=== PATIENT | female | born 1945 | race Caucasian/White ===

== ENCOUNTER → 2023-11-20 13:20 | Outpatient (REF) | payer MEDICARE, BC, SELFPAY | LOC: DHCBC MAIN 13:20 | PROVIDERS: ATTENDING PHYSICIAN Nurse Practitioner; FAMILY PHYSICIAN Internal Medicine | DX: I48.19 Other persistent atrial fibrillation (principal); I49.3 Ventricular premature depolarization; I34.0 Nonrheumatic mitral (valve) insufficiency | CPT/HCPCS: 93306 ==

== ENCOUNTER 2024-04-10 02:02 | Inpatient (IN) | payer MEDICARE, BC, SELFPAY ==
[2024-04-09 21:59] VITALS: BP 146/84
[2024-04-09 22:02] VITALS: BMI 27.9
[2024-04-09 22:28] LABS: % Basophils 0.6 % (0-2); % Eosinophils 0.5 % (0-6); % Immature Granulocytes 0.4 % (0-0.5); % Lymphocytes 23.8 % (20.5-51.1); % Monocytes 11.5 % (1.7-9.3); % Neutrophils 63.2 % (42.2-75.2); Absolute Basophils 0.1 10^3/uL (0-0.2); Absolute Eosinophils 0.1 10^3/uL (0-0.7); Absolute Immature Granulocytes 0.1 10^3/uL (0-0.05); Absolute Monocytes 1.5 10^3/uL (0.1-0.6); Hematocrit 35.7 % (37.0-47.0); Hemoglobin 12.9 g/dL (12.0-16.0); Mean Corp Hgb Conc. 36.1 g/dL (33.0-37.0); Mean Corpuscular Hgb 34.2 pg (27.0-31.0); Mean Corpuscular Volume 94.7 fL (81.0-99.0); Mean Platelet Volume 9.4 fL (7.4-10.4); Nucleated Red Blood Cells % 0 %; Platelet Count 338 10^3/uL (130-400); Red Blood Cell Count 3.77 10^6/uL (4.20-5.40); Red Cell Dist. Width 12.9 % (11.5-14.5); White Blood Cell Count 12.7 10^3/uL (4.8-10.8)
[2024-04-09 22:45] LABS: ALT (SGPT) 11 U/L (0-35); AST (SGOT) 27 U/L (14-36); Albumin 4.1 g/dl (3.5-5.0); Alkaline Phosphatase 109 U/L (38-126); Blood Urea Nitrogen 18 mg/dl (7-17); Calcium 9.9 mg/dl (8.4-10.2); Carbon Dioxide 28 mmol/L (22-30); Chloride 106 mmol/L (98-107); Estimated Creatinine Clearance 71 ml/min; Glucose 101 mg/dl (70-99); Potassium 3.8 mmol/L (3.5-5.1); Sodium 140 mmol/L (135-145); Total Bilirubin 1.8 mg/dl (0.2-1.3); Total Protein 7.2 g/dl (6.3-8.2); eGFR > 60.00
--- NOTE | 2024-04-09 22:47 | ED.GENMED ---
History of Present Illness
General
Chief Complaint: Fall
Source: patient
Exam Limitations: none
Time Seen by Provider: 04/09/24 22:33
Nursing documentation reviewed up to this point in time: agreed with
History of Present Illness
History of Present Illness:
This a pleasant 78-year-old female that presents with right hip pain. She was at home on her porch and she tripped over her cat. She hit the back of her head, creating acute contusion. She did not lose consciousness but was concerned because she
is on Eliquis. She takes Eliquis for atrial fibrillation. Patient called 911. Upon arrival she was in severe distress. She was given 100 mics of fentanyl which did not seem to touch her pain. Patient reports no other injury. Patient denies
fever, chills, nausea or vomiting. Denies chest pain or shortness of breath.
Past History
Past History
ED Past Medical History: None
ED Past Surgical History: Other (Splenectomy)
Social History
Tobacco: Non-smoker
Alcohol: None
Drug: None
Family History
Family History: Other (Nonsignificant)
Review of Systems
Review of Systems
Allergies reviewed?: Yes
All Other Systems: ROS reviewed and negative except as documented in HPI and ROS
Constitutional: Reports no symptoms
EENT: Reports no symptoms
Respiratory: Reports no symptoms
Cardiac: Reports no symptoms
ABD/GI: Reports no symptoms
: Reports no symptoms
Musculoskeletal: Reports joint pain, joint swelling and back pain
Skin: Reports no symptoms
Neurological: Reports no symptoms
Endocrine: Reports no symptoms
Hematologic/Lymphatic: Reports no symptoms
Psychiatric: Reports anxiety
Phy Exam
General Physical Exam
General Presentation: moderate distress
General age: appears stated age
General Skin: warm and dry
General Habitus: normal
General Mental: anxious
General Hydration: appears well hydrated
ENT Exam
ENT Exam: EOMI, pharynx normal, neck supple and normocephalic
Eye Exam
Eye Exam: PERRL, cornea clear and conjunctiva normal
Cardiovascular Exam
Cardiovascular Exam: irregularly irregular
Heart Sounds: normal
Pulmonary Exam
Pulmonary Exam: lungs clear, no respiratory distress, no rales, no crackles, no rhonchi, no stridor, no wheezing and no cough
Gastrointestinal Exam
Gastrointestinal Exam: normal bowel sounds, non tender, soft, no organomegaly, no pulsatile mass and non distended
Neurological Exam
Neurological Exam: alert, oriented x3, no motor deficits and speech normal
Musculoskeletal Exam
Musculoskeletal Exam: no edema, joint swelling and neuro vasc intact
Skin Exam
Skin Exam: normal color, warm/dry, no rash and no petechia
Psychiatric Exam
Psychiatric Exam: normal mood/affect
Course
Orders/Labs/Results
Orders:
Orders
04/09/24 22:09
CMP [Comprehensive Metabolic Panel] Urgent
Complete Blood Count/With Diff Urgent
04/09/24 22:35
Hip, Right 2-3 Views [CR Hip - RT w/wo Pel 2-3 Vw*] Urgent
Comment:
Reason For Exam: fall with right hip pain
Include a pelvis x-ray?: Yes
04/09/24 22:36
CT Head W/o Iv Contrast Urgent
Comment:
Reason For Exam: Fall on eliquis
Urinalysis Reflex To Culture Urgent
04/09/24 22:45
HYDROmorphone [Dilaudid] 1 mg IV NOW STA
04/09/24 22:53
Type+Screen Urgent
PTT Urgent
Prothrombin Time Urgent
04/09/24 23:46
Electrocardiogram (*1) Urgent
Reason for Study: QTc Monitoring
EKG- Treatment ONCE
04/09/24 23:47
CT Pelvis W/o Iv Contrast Urgent
Comment:
Reason For Exam: hip pain. Per ortho request
Abnormal Lab Results
04/09/24 04/09/24
22:09 22:53
WBC 12.7 H 10^3/uL
(4.8-10.8)
RBC 3.77 L 10^6/uL
(4.20-5.40)
Hct 35.7 L %
(37.0-47.0)
MCH 34.2 H pg
(27.0-31.0)
Abs Immat Gran (auto) 0.1 H 10^3/uL
(0-0.05)
Absolute Neuts (auto) 8.0 H 10^3/uL
(1.4-6.5)
Absolute Monos (auto) 1.5 H 10^3/uL
(0.1-0.6)
Monocytes % 11.5 H %
(1.7-9.3)
PT 15.8 H Sec
(11.4-14.6)
BUN 18 H mg/dl
(7-17)
Creatinine 0.5 L mg/dL
(0.6-1.0)
Glucose 101 H mg/dl
(70-99)
Total Bilirubin 1.8 H mg/dl
(0.2-1.3)
04/09/24 22:09
04/09/24 22:09
Vital Signs
Initial and Last Documented VS:
Initial Vital Signs
Temp Pulse Resp BP Pulse Ox
97.8 F 77 18 146/84 98
04/09/24 21:59 04/09/24 21:59 04/09/24 21:59 04/09/24 21:59 04/09/24 21:59
Last Documented Vital Signs
Temp Pulse Resp BP Pulse Ox
97.8 F 77 18 146/84 98
04/09/24 21:59 04/09/24 21:59 04/09/24 21:59 04/09/24 21:59 04/09/24 21:59
*Radiology
Radiology exam reviewed: preliminary read by ED provider (Right hip fracture)
*Pulse Oximetry
Patient hypoxic: no
*Critical Care Note
Total Time (30-74mins, 75-104mins- exclusive of procedures): Not Applicable
ED Attending Note
-
Portions of this chart may have been created with voice recognition software.� Occasional wrong word or��sound alike� substitutions may have occurred due to the inherent limitations of voice recognition software.
Discharge Plan
Departure
Patient Disposition: Admit
Date of Disposition: 04/09/24
Time of Disposition: 23:48
Admit to: Telemetry
Presentation/result/management discussed w/ accepting MD/DO: Hospitalist
Condition: Good
Discharge Problem:
Closed fracture of right hip
Referrals:
Trisha Grider MD [Family Provider] -
Interventions
Interventions:
*Risk Screen - Suicide Last Done: 04/09/24 22:03
*General Assessment Last Done: 04/09/24 22:03
*Neglect/Abuse Screening Last Done: 04/09/24 22:03
*ED COVID-19 Vaccine History Last Done: 04/09/24 22:03
ED-Musculoskeletal Assessment Last Done: 04/09/24 22:03
ED- Neurological Assessment Last Done: 04/09/24 22:03
ED-Skin Assessment Last Done: 04/09/24 22:03
Discharge Date and Time
Print Language: CHINESE
[2024-04-09] MEDS: DILAUDID 1 MG IV (22:50)
[2024-04-09 23:09] LABS: INR 1.26; PT 15.8 Sec (11.4-14.6)
[2024-04-09 23:10] LABS: APTT 31.8 Sec (23.4-35.0)
[2024-04-10] VITALS (20 sets, daily range): BP systolic 88–148; BP diastolic 53–90; BMI 26.2
[2024-04-10] MEDS: DILAUDID 0.5 MG IV (00:23)
--- NOTE | 2024-04-10 01:15 | HPS.HSE ---
Family Physician
-
Family Physician: Trisha Grider
Chief Complaint
-
Fall / R Hip Pain
History of Present Illness
Patient is an 78y F with PMH significant for A-Fib who presents to ED complaining of R hip pain s/p fall. Patient states that she was standing on her back deck when her cat ran out of the house. She attempted to catch him and fell over -
falling down two steps, landing on her R hip and striking her head. She landed on [employer] pavers. Patient did not lose consciousness for any period of time. She noted immediate pain in the R hip and was unable to get up, even with assistance.
Her pain was quite severe. EMS was called and patient was transported to the ED for further evaluation and treatment.
Imaging here shows R femur fracture.
Patient's only prescription medication is Eliquis - which she last took 03/30 at 10 AM.
Medical History
Past Medical History
Past Medical History: Reports Other
Additional Past Medical History:
Paroxysmal A-Fib
Hereditary Spherocytosis
Past Surgical History: Reports Other
Additional Past Surgical History:
T&A
Splenectomy
Social History
Tobacco: Former Smoker (Quit smoking 7 years ago. > 40 pack years total.)
Alcohol: Occasional
Drug: None
Family History
Family History: Not pertinent
Allergies / Home Medications
Allergies reflects when Allergies were last updated in [facility].
Home Medications with original date entered in [facility]
Allergy/Medication List:
Allergies
Allergy/AdvReac Type Severity Reaction Status Date / Time
amoxicillin Allergy Severe Unknown Verified 04/09/24 21:58
clavulanic acid Allergy Severe Unknown Verified 04/09/24 21:58
iodine Allergy Tongue Verified 04/09/24 21:58
Swelling
Home Medications
apixaban 5 mg tablet (Eliquis) 5 mg PO BID 04/10/24
cholecalciferol (vitamin D3) 25 mcg (1,000 unit) tablet 25 mcg PO DAILY 04/10/24
Review of Systems
-
History Source: Patient
A 12 point ROS was completed and negative except as noted: Yes
Constitutional: Denies Fever or Chills
Respiratory: Denies Cough or Trouble Breathing
Cardiac: Denies Chest Pain or Palpitations
Abdomen/GI: Denies Abdominal Pain, Nausea, Vomiting or Diarrhea
: Denies Dysuria, Frequency or Flank Pain
Musculoskeletal: Reports Joint Pain; Denies Edema
Neurological: Reports Headache; Denies Dizzy
Psych: Denies Depression or Anxiety
Physical Exam
Vital Signs
Vital Signs
Temp Pulse Resp BP Pulse Ox
97.8 F 83 20 145/90 94
04/09/24 21:59 04/10/24 00:14 04/10/24 00:14 04/10/24 00:14 04/10/24 00:14
Physical Exam
General: Other (78y F in mild distress due to pain.)
HEENT: Moist mucous membranes and PERRLA
Respiratory: Clear; No Wheezes, Rales or Rhonchi
Cardiac: S1/S2 and Irregular Rhythm; No Murmur
GI: Soft, Non Tender, Non Distended and Normal Bowel Sounds
Musculoskeletal: No Clubbing, No Cyanosis and No Edema
Neuro: AO x 3
Laboratory Results
-
04/09/24 22:09
04/09/24 22:09
Laboratory Results
PT 15.8 Sec (11.4-14.6) H 04/09/24 22:53
INR 1.26 04/09/24 22:53
APTT 31.8 Sec (23.4-35.0) 04/09/24 22:53
Total Bilirubin 1.8 mg/dl (0.2-1.3) H 04/09/24 22:09
AST 27 U/L (14-36) 04/09/24 22:09
ALT 11 U/L (0-35) 04/09/24 22:09
Alkaline Phosphatase 109 U/L (38-126) 04/09/24 22:09
Impression/Plan
-
A/P: Patient is an 78y F with PMH significant for paroxysmal A-Fib on Eliquis who presents to ED complaining of R hip pain s/p fall at home.
Right Femur Fracture
- Admit for further evaluation and treatment.
- Ortho evaluation for operative repair.
- Pain control pending OR.
- Patient has no personal history of ME, CVA, etc.
- Increased risk for complications relating to anesthesia on basis of advanced age, anticoagulant use and A-Fib.
- Benefits of planned procedure outweigh the potential risks and patient is OK to proceed to OR after reasonable Eliquis wash out.
- Post-op PT / OT evals, DVT prophylaxis, etc.
- Continue efforts at pain control pending surgery.
Fall at Home
Scalp Contusion
- CT head unremarkable in the ED.
- Area of swelling posterior scalp is improving per patient.
- Follow neurologic exam for any changes and repeat imaging if needed.
- Hold Eliquis as noted above.
Paroxysmal Atrial Fibrillation
- Stable. Hold Eliquis.
- Monitor on tele perioperatively.
DVT Prophylaxis: SCDs
Code Status: Full
[2024-04-10] MEDS: ZOFRAN 4 MG IV ×2 (01:27→17:46)
[2024-04-10 03:49] LABS: Urine Albumin Negative (Neg - Trace); Urine Bilirubin Negative (Negative); Urine Character Clear (Clear); Urine Color Yellow; Urine Glucose Negative (Negative); Urine Ketone 1+ (Negative); Urine Leukocyte Trace (Negative); Urine Nitrite Negative (Negative); Urine Occult Blood Negative (Negative); Urine Urobilinogen Negative (Neg - 1+)
--- NOTE | 2024-04-10 03:55 | PTCARENOTE ---
Pt received from ER [id number] able to make her needs known. Pt was a pullover related right hip freacture, pt refused complete assessment as she has pain & also refusing for pain meds as she already received in ER & doesn't like taking too much. Pt very
anxious also, provided with emotional support. Pt refuses to take anything for anxiety. [employer] administrative assistant receptionist made aware of pt complains.Plan of care continued.
[2024-04-10 05:54] LABS: Urine Bacteria Few (Negative)
[2024-04-10] MEDS: TYLENOL 1000 MG PO ×2 (06:32→21:07)
[2024-04-10 08:46] LABS: Hematocrit 35.2 % (37.0-47.0); Mean Corp Hgb Conc. 34.1 g/dL (33.0-37.0); Mean Corpuscular Hgb 33.6 pg (27.0-31.0); Mean Corpuscular Volume 98.6 fL (81.0-99.0); Mean Platelet Volume 9.4 fL (7.4-10.4); Platelet Count 278 10^3/uL (130-400); Red Blood Cell Count 3.57 10^6/uL (4.20-5.40); Red Cell Dist. Width 12.8 % (11.5-14.5); White Blood Cell Count 15.6 10^3/uL (4.8-10.8)
--- NOTE | 2024-04-10 08:48 | W.PN.UPDATE ---
Update Note
Progress Note Update
Patient seen and examined
78 yo F R IT femur fracture
NWB RLE
NPO
Hold eliquis
Medical management per primary team
Plan for OR later today pending medical clearance and OR availibility
Last eliquis was yesterday at 10 am, OK from my standpoint to proceed with cephalomedullay nail without further washout
Formal consult note to follow
[2024-04-10 08:55] LABS: Blood Urea Nitrogen 15 mg/dl (7-17); Calcium 9.3 mg/dl (8.4-10.2); Carbon Dioxide 29 mmol/L (22-30); Chloride 104 mmol/L (98-107); Estimated Creatinine Clearance 62 ml/min; Glucose 138 mg/dl (70-99); Potassium 3.9 mmol/L (3.5-5.1); Sodium 139 mmol/L (135-145); eGFR > 60.00
--- NOTE | 2024-04-10 11:50 | W.PN.HOSP.TC ---
Today's Communication/Plan
-
OK for OR today
Assessment / Plan
Assessment / Plan
pt is an 78 year old female
mechanical fall resultant in Right Femur Fracture--OK for OR later today--hold Eliquis, restart as per ortho, apprec input-- Post-op PT OT evals, DVT prophylaxis, etc.- Continue efforts at pain control pending surgery.
Fall at Home/Scalp Contusion- CT head unremarkable in the ED- Area of swelling posterior scalp is improving per patient- Follow neurologic exam for any changes and repeat imaging if needed- Hold Eliquis as noted above.
Paroxysmal Atrial Fibrillation- Stable. Hold Eliquis- Monitor on tele perioperatively.
DVT Prophylaxis: SCDs
Code Status: Full
Anticipated Discharge: > 48 hours
Subjective/Interval History
-
Date of Service: April 10, 2024
pt c/o pain right leg if she moves it
Objective Data
-
Labs:
Laboratory Results
04/10/24
08:16
WBC 15.6 H
Hgb 12.0
Hct 35.2 L
Plt Count 278
Sodium 139
Potassium 3.9
Chloride 104
Carbon Dioxide 29
BUN 15
Creatinine 0.5 L
Glucose 138 H
Calcium 9.3
Vital Signs:
max temp for 24 hours
04/09/24
21:59
Temp 97.8 F
Vital Signs
Temp Pulse Resp BP Pulse Ox
97.7 F 75 18 123/63 100
04/10/24 11:34 04/10/24 11:34 04/10/24 11:34 04/10/24 11:34 04/10/24 11:34
Review of Systems
-
All other systems: Reviewed and negative
Physical Exam
-
General: Well Developed, Well Nourished and No Apparent Distress
HEENT: Normocephalic and Atraumatic
Respiratory: Clear to Auscultation; Negative Wheezes or Rhonchi
Cardiac: Irregular Rhythm
GI: Soft, Nontender, Nondistended and Normal Bowel Sounds
Musculoskeletal: No Clubbing, No Cyanosis, No Edema and Other (right leg extended)
Neuro: Awake and Alert
Psych: Calm
--- NOTE | 2024-04-10 11:57 | PTCARENOTE ---
Patient NPO. CHG wipes completed. Changed into clean gown and bedsheets. Pneumatics bilateral knee high maintained. Awaiting OR time.
[2024-04-10] MEDS: TYLENOL PO (16:27)
--- NOTE | 2024-04-10 16:38 | OR.RPT ---
Operative Report
Operative Report
Anesthesia Type:
General
Operative Indications:
Intertrochanteric femur fracture
Operative Findings :
Nondisplaced right intertrochanteric femur fracture
Complications:
None
Implants:
[place] 125 degree x 10 mm short cephalomedullary nail, 95 mm cephalomedullary lag screw, 35 x 5 mm distal interlocking bolt
Procedure and Technique:
Insertion right cephalomedullary nail
INDICATIONS FOR PROCEDURE:
78-year-old patient presented status post mechanical fall. They were subsequently diagnosed with an intertrochanteric femur fracture. Orthopedics was consulted for further evaluation and treatment. After discussion with the patient and her
family, decision was made to proceed with operative intervention in the form of short cephalomedullary nail. Long discussion was had regarding risks and benefits of procedure. Risks include but are not limited to infection, blood loss, damage to
surrounding structures, persistent pain, loss of function, need for repeat surgery, implant cut out, periprosthetic fracture, DVT/PE and adverse risks of anesthesia. Benefits include early mobilization and fracture stabilization. After discussion
written informed consent was obtained. Patient was on Eliquis and this was held for 24 hours prior to surgery
OPERATIVE PROCEDURE:
Patient was seen and identified in the preoperative holding area. Operative extremity was marked. Patient was taken to the operating room and provided anesthesia by the anesthesia team. Placed supine on fracture table. Nonoperative extremity was
placed in a scissored position and padded with a gel pad to the central post of the fracture table. Operative extremity was placed in a well-padded fracture boot. Biplanar fluoroscopy confirmed appropriate reduction after axial traction, adduction
and slight internal rotation of the fracture. Operative extremity was then prepped and draped in normal sterile fashion. Timeout was performed again identifying the operative extremity correctly. Preoperative antibiotics were addressed.
Approximately 5 cm incision was made 2 fingerbreadths proximal to the greater trochanter. Sharp dissection was carried through skin and subcutaneous tissues deep fascial layers. Guidepin was then inserted under biplanar fluoroscopic guidance
through the greater trochanter in accordance with the implants operative technique. This was inserted to a depth just distal to the lesser trochanter. Proximal opening reamer was then utilized. A short cephalomedullary nail was then inserted to
the appropriate depth. Trocar was then inserted through the aiming arm. Sharp dissection was then carried through skin and subcutaneous tissues as well as deep fascial layers. Guidewire was inserted through the trocar into the femoral neck and
head. Appropriate position was confirmed under biplanar fluoroscopy. Attention was made to minimize the tip apex distance. Measurements were obtained for the cephalomedullary screw. Cannulated drill was then drilled to the appropriate depth
followed by the insertion of cannulated cephalomedullary screw. Appropriate final position of the screw within the confines of the femoral neck and head were confirmed again on biplanar fluoroscopy. Setscrew was deployed. additional trocar was then
inserted through the aiming arm for the distal interlocking screw. Sharp dissection was carried through skin, subcutaneous tissues and deep fascial layers. Appropriate length interlocking screw was then drilled and inserted. Final appropriate
positioning was confirmed again on biplanar fluoroscopy. Satisfied with the extent of surgery, wounds were copiously irrigated with normal saline solution and closed in a layered fashion utilizing 0 Vicryl for deep fascial layer, 2-0 Vicryl for
subcu cutaneous layer and lashell for skin. Aquacel dressings were applied. Anesthesia was reversed and patient was taken to the operating room in stable condition. Postoperative plans include weightbearing the patient's tolerance operative
extremity. Patient may resume Eliquis for DVT prophylaxis beginning tomorrow. Plan to follow-up with patient in the office outpatient setting 2 weeks
Disposition:
PACU stable condition
--- NOTE | 2024-04-10 16:45 | CON.ORTHO ---
Consultation
-
Date/Time Consultation Requested: 11 PM 04/09/24
Date/Time Consultation Performed: 815 AM 04/10/24
Requesting Provider: ED
Performing Provider: Ilda
Reason for Consultation: Right hip fracture
Consultation - Orthopedics
History
78-year-old female history of A-fib on Eliquis presented to the [place] emergency department status post fall at home with complaints of right hip pain and inability to bear weight. She was subsequently diagnosed with a right intertrochanteric
femur fracture. She was admitted to the hospitalist service and orthopedics was consulted for further evaluation and treatment. This morning patient reports that she fell on her back porch yesterday. She localizes pain to the right hip and groin
region. Pain is made worse with direct palpation affected area and with attempted ambulation. She denies any associated numbness or tingling. She is quite active and independent does not use any assistive devices for ambulatory aid she lives at
home with her partner.
Allergies / Home Medications
Past medical history: A-fib on Eliquis, hereditary spherocytosis
Past surgical history: T&A, splenectomy
Social history: Lives at home with her partner former smoker
Family history: Not pertinent
Allergy/AdvReac Type Severity Reaction Status Date / Time
amoxicillin Allergy Unknown Verified 04/10/24 16:39
clavulanic acid Allergy Unknown Verified 04/10/24 16:39
iodine Allergy Tongue Verified 04/09/24 21:58
Swelling
�Medication �Instructions �Recorded
apixaban 5 mg tablet (Eliquis) 5 mg PO BID 04/10/24
cholecalciferol (vitamin D3) 25 25 mcg PO DAILY 04/10/24
mcg (1,000 unit) tablet
Vital Signs / Lab Results
Temp Pulse Resp BP Pulse Ox
97.7 F 75 18 123/63 100
04/10/24 11:34 04/10/24 11:34 04/10/24 11:34 04/10/24 11:34 04/10/24 11:34
04/10/24 08:16
04/10/24 08:16
10 point review systems reviewed and negative unless otherwise stated
General: Pleasant, no acute distress
Musculoskeletal right lower extremity
Skin intact, no erythema, no ecchymotic staining
Extremity slightly shortened without significant rotational deformity
There is tenderness palpation over groin and lateral trochanteric flare
No ipsilateral knee tenderness palpation
No ipsilateral palpable knee effusion
Positive EHL, FHL, ankle dorsiflexion, plantarflexion
Brisk cap refill distally
Sensation intact to light touch in all distributions distally
No areas of bony tenderness palpation or crepitation of long bones or joints on tertiary examination
Diagnostic studies
X-rays right hip independently viewed by myself shows essentially nondisplaced right intertrochanteric femur fracture
Assessment / Plan
78-year-old female history of A-fib on Eliquis status post fall with right intertrochanteric femur fracture. I do long detailed discussion with the patient regarding diagnosis and treatment options. We discussed both surgical and nonsurgical
options. After discussion we mutually elected to proceed with insertion right cephalomedullary nail for operative fixation of right intertrochanteric femur fracture. We discussed risks benefits and alternatives to surgery. We discussed the usual
expected perioperative and postoperative course. After discussion written informed consent was obtained
Nonweightbearing right lower extremity
N.p.o.
Please hold Eliquis in preparation for OR
Pain control
Medical management per primary team
Plan 2 OR today for operative fixation right intertrochanteric femur fracture pending medical clearance and or availability
[2024-04-10] MEDS: DILAUDID 0.25 MG IV ×2 (16:56→17:12)
[2024-04-10] MEDS: NSS 1000 IV (17:16)
[2024-04-10] MEDS: DEMEROL 12.5 MG IV (17:32)
--- NOTE | 2024-04-10 18:13 | SUR.PHASEI ---
received patient from Elisabet Gabriel RN, patient yelling out, making unusual cries; c/o of pain - though appears to be sleeping with eyes closed. Answers some questions appropriately and then cursing and states she doesn't know 'what the f--- is going
on'. vss, medicated with 12.5mg of Demerol for pain and shivers, Dr Tapia and Dr Gonsales reached and updated. Okay with Dr Tapia for discharge from PACU. Will hold patient in PACU until mentally more clear. Dr Gonsales at bedside - states
patient lucid and cooperative preop. vague c/o nausea - medicated with zofran - currently sleeping soundly with stable vitals.
--- NOTE | 2024-04-10 20:07 | SUR.PHASEI ---
1909 - patient slept and now awake and comfortable, no pain, oriented x3 and has no recall of anytime post op. discharge to [address] [place] [address] with hand off at bedside. vss.
[2024-04-10] MEDS: SENOKOT 17.1999999999999993 MG PO (21:06)
[2024-04-10] MEDS: COLACE 100 MG PO (21:06)
[2024-04-10] MEDS: ROXICODONE 10 MG PO (21:31)
[2024-04-11] VITALS (9 sets, daily range): BP systolic 107–130; BP diastolic 61–67
[2024-04-11] MEDS: ANCEF 5 IV ×2 (00:14→09:41)
[2024-04-11] MEDS: NSS 1000 IV (05:00)
[2024-04-11] MEDS: ROXICODONE 5 MG PO ×3 (05:01→16:27)
[2024-04-11 06:13] LABS: Hematocrit 31.5 % (37.0-47.0); Hemoglobin 11.3 g/dL (12.0-16.0); Mean Corp Hgb Conc. 35.9 g/dL (33.0-37.0); Mean Corpuscular Hgb 34.1 pg (27.0-31.0); Mean Corpuscular Volume 95.2 fL (81.0-99.0); Platelet Count 269 10^3/uL (130-400); Red Blood Cell Count 3.31 10^6/uL (4.20-5.40); Red Cell Dist. Width 12.9 % (11.5-14.5); White Blood Cell Count 12.5 10^3/uL (4.8-10.8)
[2024-04-11 06:40] LABS: Blood Urea Nitrogen 12 mg/dl (7-17); Calcium 9.1 mg/dl (8.4-10.2); Carbon Dioxide 22 mmol/L (22-30); Chloride 106 mmol/L (98-107); Estimated Creatinine Clearance 62 ml/min; Glucose 137 mg/dl (70-99); Magnesium 1.7 mg/dl (1.6-2.3); Potassium 4.1 mmol/L (3.5-5.1); Sodium 139 mmol/L (135-145); eGFR > 60.00
--- NOTE | 2024-04-11 06:43 | PTCARENOTE ---
1930 pt received from pacu via stretcher. oriented to room and floor routines. Call he within reach.
[2024-04-11] MEDS: COLACE 100 MG PO (09:42)
[2024-04-11] MEDS: TYLENOL 1000 MG PO ×3 (09:42→21:07)
--- NOTE | 2024-04-11 09:44 | W.PN.HOSP.TC ---
Today's Communication/Plan
-
pt wants to go home --therapy eval pending
restart Eliquis
lopressor 5mg IV PRN
Assessment / Plan
Assessment / Plan
pt is an 78 year old female
mechanical fall resultant in Right Femur Fracture--s/p ORIF, apprec ortho--restart Eliquis-- Post-op PT OT evals, DVT prophylaxis, etc.- Continue efforts at pain control pending surgery.
Fall at Home/Scalp Contusion- CT head unremarkable in the ED- Area of swelling posterior scalp is improving per patient- Follow neurologic exam for any changes and repeat imaging if needed- Hold Eliquis as noted above.
Paroxysmal Atrial Fibrillation-- HR increased, likely combo of surgery, pain--restart Eliquis but not on any blocking agents...will order PRN to start
DVT Prophylaxis: SCDs
Code Status: Full
Anticipated Discharge: 24 - 48 hours
Subjective/Interval History
-
Date of Service: April 11, 2024
pt HR increasing to 120s (not on any blocking agents for afib?)
Objective Data
-
Labs:
Laboratory Results
04/11/24
05:36
WBC 12.5 H
Hgb 11.3 L
Hct 31.5 L
Plt Count 269
Sodium 139
Potassium 4.1
Chloride 106
Carbon Dioxide 22
BUN 12
Creatinine 0.4 L
Glucose 137 H
Calcium 9.1
Vital Signs:
max temp for 24 hours
04/10/24
19:40
Temp 98.1 F
Vital Signs
Temp Pulse Resp BP Pulse Ox
98.5 F 97 17 120/61 91
04/11/24 07:46 04/11/24 07:46 04/11/24 07:46 04/11/24 07:46 04/11/24 07:46
I&O
04/10/24 04/11/24 04/12/24
06:59 06:59 06:59
Intake Total 1420 / 1420
Output Total 100 / 100
Balance 1320 / 1320
Review of Systems
-
All other systems: Reviewed and negative
Musculoskeletal: Reports Joint Pain ('ouchy' per patient)
Physical Exam
-
General: Well Developed, Well Nourished and No Apparent Distress
HEENT: Normocephalic and Atraumatic
Respiratory: Clear to Auscultation; Negative Wheezes or Rhonchi
Cardiac: Irregular Rhythm and Tachycardic
GI: Soft, Nontender, Nondistended and Normal Bowel Sounds
Musculoskeletal: No Clubbing, No Cyanosis and No Edema
Skin: Warm and Dry
Neuro: Awake and Alert
Psych: Calm
--- NOTE | 2024-04-11 10:48 | W.PN.ORTHO ---
Today's Communication / Plan
-
78-year-old female postop day 1 status post right short cephalomedullary nail for intertrochanteric femur fracture doing well
Weightbearing as tolerated right lower extremity
PT OT
Pain control
DVT prophylaxis: Okay to resume Eliquis as previously prescribed
Medical management per primary team
Plan to follow-up with myself outpatient 2 to 3 weeks repeat evaluation with planned removal of lashell
Subjective
.
.:
Patient resting comfortably in chair. No acute overnight events
Vital Signs and Labs
.
Vital Signs and Labs:
Lab Results
04/11/24 05:36
04/11/24 05:36
Temp Pulse Resp BP Pulse Ox
98.5 F 97 17 120/61 91
04/11/24 07:46 04/11/24 07:46 04/11/24 07:46 04/11/24 07:46 04/11/24 07:46
PT 15.8 Sec (11.4-14.6) H 04/09/24 22:53
INR 1.26 04/09/24 22:53
Physical Exam
-
Musculoskeletal right lower extremity
Dressings with minimal bloody drainage
Moderate swelling thigh
Positive EHL, FHL, ankle dorsiflexion, plantarflexion
Brisk cap refill distally
[2024-04-11] MEDS: ELIQUIS 5 MG PO ×2 (11:12→22:46)
[2024-04-11] MEDS: ROXICODONE 10 MG PO ×2 (12:52→23:04)
[2024-04-11] MEDS: COLACE PO (21:03)
[2024-04-11] MEDS: ELIQUIS PO (21:03)
[2024-04-11] MEDS: SENOKOT PO (21:05)
[2024-04-12] VITALS (8 sets, daily range): BP systolic 112–154; BP diastolic 55–85; PULSE 88; O2SAT 97
[2024-04-12] MEDS: ROXICODONE 5 MG PO ×3 (05:18→17:06)
[2024-04-12 06:04] LABS: Hematocrit 28.4 % (37.0-47.0); Hemoglobin 9.9 g/dL (12.0-16.0); Mean Corp Hgb Conc. 34.9 g/dL (33.0-37.0); Mean Corpuscular Hgb 34.3 pg (27.0-31.0); Mean Corpuscular Volume 98.3 fL (81.0-99.0); Mean Platelet Volume 9.5 fL (7.4-10.4); Platelet Count 234 10^3/uL (130-400); Red Blood Cell Count 2.89 10^6/uL (4.20-5.40); Red Cell Dist. Width 12.9 % (11.5-14.5)
[2024-04-12 06:22] LABS: Blood Urea Nitrogen 18 mg/dl (7-17); Calcium 9.1 mg/dl (8.4-10.2); Carbon Dioxide 29 mmol/L (22-30); Chloride 104 mmol/L (98-107); Estimated Creatinine Clearance 62 ml/min; Glucose 103 mg/dl (70-99); Magnesium 1.6 mg/dl (1.6-2.3); Potassium 3.7 mmol/L (3.5-5.1); Sodium 140 mmol/L (135-145); eGFR > 60.00
[2024-04-12] MEDS: ELIQUIS 5 MG PO ×2 (10:16→20:16)
[2024-04-12] MEDS: TYLENOL 1000 MG PO ×3 (10:18→21:11)
[2024-04-12] MEDS: COLACE 100 MG PO ×2 (10:18→20:16)
--- NOTE | 2024-04-12 11:44 | W.PN.HOSP.TC ---
Today's Communication/Plan
-
waiting for insurance auth/beds
Assessment / Plan
Assessment / Plan
pt is an 78 year old female
mechanical fall resultant in Right Femur Fracture--s/p ORIF, apprec ortho--restarted Eliquis-- Post-op PT/OT evals, DVT prophylaxis, etc--d/c planning to SNF
Fall at Home/Scalp Contusion- CT head unremarkable in the ED- Area of swelling posterior scalp is improving per patient
Paroxysmal Atrial Fibrillation-- HR increased, likely combo of surgery, pain--restart Eliquis but not on any blocking agents...will order PRN to start
DVT Prophylaxis: SCDs
Code Status: Full
Anticipated Discharge: Within 24 hours
Subjective/Interval History
-
Date of Service: April 12, 2024
pt now saying she will go to rehab
Objective Data
-
Labs:
Laboratory Results
04/12/24
05:46
WBC 15.0 H
Hgb 9.9 L
Hct 28.4 L
Plt Count 234
Sodium 140
Potassium 3.7
Chloride 104
Carbon Dioxide 29
BUN 18 H
Creatinine 0.5 L
Glucose 103 H
Calcium 9.1
Vital Signs:
max temp for 24 hours
04/11/24
23:06
Temp 98.5 F
Vital Signs
Temp Pulse Resp BP Pulse Ox
98.0 F 84 16 117/80 94
04/12/24 07:33 04/12/24 07:33 04/12/24 07:33 04/12/24 07:33 04/12/24 07:33
I&O
04/11/24 04/12/24 04/13/24
06:59 06:59 06:59
Intake Total 1420 / 1420 1540 / 1540
Output Total 100 / 100 200 / 200
Balance 1320 / 1320 1340 / 1340
Review of Systems
-
All other systems: Reviewed and negative
Physical Exam
-
General: Well Developed, Well Nourished and No Apparent Distress
HEENT: Normocephalic and Atraumatic
Respiratory: Clear to Auscultation; Negative Wheezes or Rhonchi
Cardiac: Irregular Rhythm
GI: Soft, Nontender, Nondistended and Normal Bowel Sounds
Musculoskeletal: No Clubbing, No Cyanosis, No Edema and Other (right hip post op)
Neuro: Awake
--- NOTE | 2024-04-12 14:59 | CM ---
Patient seen at bedside today with physician. CM confirmed that patient still wanted to go to SNF as discussed yesterday am. Patient stated she did and stated [facility] would be her first choices and then [facility]. CM confirmed that [facility] was
offering a bed but [facility] and [facility] had not yet responded. CM called to [facility] to clarify ability to offer bed. Per nursing, requested fax of clinical information to; [phone]. CM will send fax and await response. VM also left at
[facility]. CM will continue to follow for discharge planning needs.
Plan; SNF; pending acceptance.
[2024-04-12] MEDS: SENOKOT 17.1999999999999993 MG PO (21:11)
[2024-04-13 03:00] VITALS: BP 130/69
[2024-04-13] MEDS: LOPRESSOR 5 MG IV (05:55)
[2024-04-13 07:25] VITALS: BP 134/63
[2024-04-13 07:27] LABS: Hematocrit 30.9 % (37.0-47.0); Hemoglobin 10.7 g/dL (12.0-16.0); Mean Corp Hgb Conc. 34.6 g/dL (33.0-37.0); Mean Corpuscular Hgb 34.1 pg (27.0-31.0); Mean Corpuscular Volume 98.4 fL (81.0-99.0); Mean Platelet Volume 9.5 fL (7.4-10.4); Platelet Count 296 10^3/uL (130-400); Red Blood Cell Count 3.14 10^6/uL (4.20-5.40); Red Cell Dist. Width 13.2 % (11.5-14.5); White Blood Cell Count 12.5 10^3/uL (4.8-10.8)
[2024-04-13 08:07] LABS: Blood Urea Nitrogen 13 mg/dl (7-17); Calcium 9.6 mg/dl (8.4-10.2); Carbon Dioxide 27 mmol/L (22-30); Chloride 104 mmol/L (98-107); Estimated Creatinine Clearance 62 ml/min; Glucose 100 mg/dl (70-99); Magnesium 1.6 mg/dl (1.6-2.3); Potassium 4.1 mmol/L (3.5-5.1); Sodium 140 mmol/L (135-145); eGFR > 60.00
[2024-04-13] MEDS: ELIQUIS 5 MG PO (08:22)
[2024-04-13] MEDS: TYLENOL 1000 MG PO ×2 (08:23→15:07)
[2024-04-13] MEDS: COLACE 100 MG PO (08:23)
[2024-04-13] MEDS: ROXICODONE 5 MG PO (08:27)
[2024-04-13 10:48] VITALS: BP 142/71; PULSE 87; O2SAT 95
[2024-04-13 11:19] VITALS: BP 127/64; PULSE 80; O2SAT 94
[2024-04-13 11:20] VITALS: BP 112/55
--- NOTE | 2024-04-13 12:29 | CM ---
Addendum entered by Vanessa Valadez RN 04/13/24 13:01:
Patient has been accepted at [facility]. Patient's brother will provide transportation. Covid screen required.
Call report to: [phone] - ask for rehab aide
Fax report to: [phone]
Original Note:
Reviewed the chart notes and spoke with the patient at the bedside. IMM signed and placed on chart. Referrals sent to SNFs. Awaiting responses. CM continues to be available to patient/family and is monitoring medical plan for needs at discharge.
Plan: Discharge to SNF/rehab once bed found. No precert required.
--- NOTE | 2024-04-13 12:57 | W.DS.TRANS ---
DC Summary - [employer]
-
Discharge Instructions:
Sleep Apnea Risk Low
Discharge Diagnosis/Procedures Mechanical fall status post right femur fracture
status post open reduction internal fixation,
scalp contusion, paroxysmal atrial fibrillation
Diet As tolerated,Regular
Activity As tolerated
Driving Restrictions No driving
Bathing Restrictions None
Instructions:
Stand-Alone Forms:
Changes to Home Medications: No
Discharge Medications:
DC Medications w/original date entered in [employer]
apixaban 5 mg tablet (Eliquis) 5 mg PO BID Blood Clot Prevention/Tx 04/10/24
cholecalciferol (vitamin D3) 25 mcg (1,000 unit) tablet 25 mcg PO DAILY 04/10/24
acetaminophen 500 mg tablet (Tylenol Extra Strength) 1,000 mg (2 x 500 mg) PO TID PRN Pain #30 tabs 04/13/24
docusate sodium 100 mg capsule 100 mg PO BID #20 caps 04/13/24
oxycodone 5 mg tablet 5 mg PO Q4HPRN PRN mild pain #14 tabs 04/13/24
polyethylene glycol 3350 17 gram oral powder packet (HealthyLax) 17 g PO DAILYPRN PRN Constipation #10 ea 04/13/24
Home Medication Changes
Pending Results: No
[2024-04-13 14:06] LABS: COVID-19 Antigen Negative (Negative)
[2024-04-13] MEDS: ROXICODONE 10 MG PO (15:16)
[2024-04-13 15:30] VITALS: BP 146/71
== END 2024-04-13 16:33 | DRG 481 ==
LOC: 2 SOUTH 02:02
PROVIDERS: Emergency Medicine; Internal Medicine; ADMITTING PHYSICIAN Hospitalist; ATTENDING PHYSICIAN Internal Medicine; CONSULT PHYSICIAN Orthopaedic Surgery; EMERGENCY PHYSICIAN Student in an Organized Health Care Education/Training Program; FAMILY PHYSICIAN Internal Medicine
PROC: 0QH606Z Insertion of Intramedullary Internal Fixation Device into Right Upper Femur, Open Approach (ICD-10-PCS; 2024-04-10)
DX: S72.144A Nondisplaced intertrochanteric fracture of right femur, initial encounter for closed fracture (principal); D62 Acute posthemorrhagic anemia; D58.0 Hereditary spherocytosis; I48.0 Paroxysmal atrial fibrillation; S00.03XA Contusion of scalp, initial encounter; W10.9XXA Fall (on) (from) unspecified stairs and steps, initial encounter; Y92.009 Unspecified place in unspecified non-institutional (private) residence as the place of occurrence of the external cause; Z79.01 Long term (current) use of anticoagulants; Z90.81 Acquired absence of spleen
CPT/HCPCS: 70450; 72192; 73502; 73560; 76000; 80048; 80053; 81003; 81015; 83735; 85025; 85027; 85610; 85730; 86850; 86900; 86901; 87811; 93005; 96374; 96376; 97116; 97162; 97166; 97530; 97535; 99285; C1713; C1769